=== PATIENT | male | born 1960 | race African-American/Black ===

== ENCOUNTER 2023-03-14 01:22 | Emergency (ER) | payer MEDICARE ==
[~2023-03-14] VITALS: Ht 182.9 cm; Wt 121.0 kg
[2023-03-14 01:26] VITALS: BP 169/94
[2023-03-14 04:10] LABS: BASOPHILS % 0.4 % (0.0-2.0); EOSINOPHILS % 2.2 % (0.0-5.0); HEMATOCRIT. 48.1 % (42.0-52.0); HEMOGLOBIN. 16.7 g/dL (14.0-18.0); LYMPHOCYTES % 21.9 % (20.0-50.0); MEAN CORPUSCULAR HEMOGLOBIN 29.6 pg (28.0-32.0); MEAN CORPUSCULAR VOLUME 85.4 fL (80.0-94.0); MEAN PLATELET VOLUME 7.8 fl (7.4-10.4); MONOCYTES % 6.5 % (2.0-8.0); PLATELET 246 x1000/uL (130-400); RED BLOOD CELL COUNT 5.63 mill/uL (4.7-6.1); RED CELL DISTRIBUTION WIDTH 13.9 % (11.6-14.6)
[2023-03-14 04:25] LABS: CHLORIDE 105 mEq/L (98-107)
== END 2023-03-14 05:28 | disposition home or self-care (01) ==
LOC: ER 01:22
DX: Z00.00 Encounter for general adult medical examination without abnormal findings (principal); E11.9 Type 2 diabetes mellitus without complications; I10 Essential (primary) hypertension; Z88.2 Allergy status to sulfonamides
CPT/HCPCS: 36415; 71045; 80053; 85025; 93005; 99285